=== PATIENT | male | born 1940 | race Caucasian/White ===

== ENCOUNTER 2025-02-11 10:38 | Inpatient (IN) | payer MEDICARE ==
[2025-02-11 11:47] LABS: Basophils # (A) 0.03 10*3/uL (0.00-0.10); Basophils % (A) 0.4 %; Eosinophils # (A) 0.09 10*3/uL (0.04-0.35); Eosinophils % (A) 1.3 %; HCT 36.7 % (39.6-50.0); HGB 12.5 g/dL (13.0-17.0); Lymphocytes % (A) 32.6 %; MCH 28.4 pg (27.0-32.0); MCHC 34.1 g/dL (32.0-37.0); MCV 83.4 fL (80.0-97.0); Mean Platelet Volume 9.8 fL (9.5-12.2); Monocytes # (A) 0.74 10*3/uL (0.20-1.00); Neutrophils # (A) 3.67 10*3/uL (1.80-7.70); Neutrophils % (A) 54.4 %; Platelet Count 253 10*3/uL (140-440); RDW 14.3 % (11.5-14.5); WBC 6.75 10*3/uL (4.50-10.00)
--- NOTE | 2025-02-11 11:58 | ED ---
General Adult HPI - General Chief complaint: Weakness Stated complaint: Abn labs-sent by PCP Time Seen by Provider: 02/11/25 10:40 Source: patient, family, RN notes reviewed, old records reviewed Mode of arrival: wheelchair - History of Present Illness Initial comments: This is an 85-year-old male who presents to the emergency department much more fatigued than baseline and also according to the daughter he is a little confused. Patient went to his doctors yesterday and they found out that he was in kidney failure so they sent him into the emergency department. Patient had some diarrhea last week but only has had a couple episodes this week. Patient has had no fever chills there is been no cough. Patient is not complaining of any chest pain abdominal pain. Patient denies any difficulty breathing or shortness of breath. Patient's main complaint is he just feels tired overall. - Related Data Home Medications Medication Instructions Recorded Confirmed Alfuzosin HCl [Uroxatral ER] 10 mg PO HS 08/04/17 02/11/25 Benazepril HCl [Lotensin] 40 mg PO BID 08/04/17 02/11/25 Metoprolol Tartrate [Lopressor] 50 mg PO BID 08/04/17 02/11/25 Carbidopa-Levodopa ER 50-200Mg 1 tab PO HS 02/11/25 02/11/25 [Sinemet CR 50-200 mg] Carbidopa-Levodopa ER 50-200Mg 2 tab PO DAILY 02/11/25 02/11/25 [Sinemet CR 50-200 mg] Furosemide [Lasix] 20 mg PO DAILY 02/11/25 02/11/25 Furosemide [Lasix] 20 mg PO DAILY PRN 02/11/25 02/11/25 Allergies Allergy/AdvReac Type Severity Reaction Status Date / Time No Known Allergies Allergy Verified 02/11/25 12:07 Review of Systems ROS Statement: Those systems with pertinent positive or pertinent negative responses have been documented in the HPI. ROS Other: All systems not noted in ROS Statement are negative. Past Medical History Past Medical History: Eye Disorder, Hypertension Additional Past Medical History / Comment(s): Right cataract. History of Any Multi-Drug Resistant Organisms: None Reported Additional Past Surgical History / Comment(s): Left cataract surgery, gall stones surgery. Past Anesthesia/Blood Transfusion Reactions: No Reported Reaction Past Psychological History: Anxiety Past Alcohol Use History: Rare Past Drug Use History: None Reported - Past Family History Mother Family Medical History: No Reported History General Exam - General Exam Comments Initial Comments: GENERAL: Patient is well-developed and well-nourished. Patient is nontoxic and well- hydrated and is in no acute distress. ENT: Neck is soft and supple. No significant lymphadenopathy is noted. Oropharynx is clear. Moist mucous membranes. Neck has full range of motion without eliciting any pain. EYES: The sclera were anicteric and conjunctiva were pink and moist. Extraocular movements were intact and pupils were equal round and reactive to light. Eyelids were unremarkable. PULMONARY: Unlabored respirations. Good breath sounds bilaterally. No audible rales rhonchi or wheezing was noted. CARDIOVASCULAR: There is a regular rate and rhythm without any murmurs gallops or rubs. ABDOMEN: Soft and nontender with normal bowel sounds. SKIN: Skin is clear with no lesions or rashes and otherwise unremarkable. NEUROLOGIC: Patient is alert and oriented x3. Cranial nerves II through XII are grossly intact. Motor and sensory are also intact. Normal speech, volume and content. Symmetrical smile. MUSCULOSKELETAL: Normal extremities with adequate strength and full range of motion. No lower extremity swelling or edema. No calf tenderness. LYMPHATICS: No significant lymphadenopathy is noted PSYCHIATRIC: Normal psychiatric evaluation. Course Vital Signs 02/11/25 02/11/25 02/11/25 10:38 11:57 13:23 Temperature 97.9 F Pulse Rate 63 56 L 53 L Respiratory 14 22 18 Rate Blood Pressure 146/93 133/82 129/77 O2 Sat by Pulse 96 96 97 Oximetry Medical Decision Making - Medical Decision Making Was pt. sent in by a medical professional or institution (, PA, [facility], urgent care, hospital, or [facility]...) When possible be specific @ -No Did you speak to anyone other than the patient for history (EMS, parent, family, police, friend...)? What history was obtained from this source @ -No Did you review nursing and triage notes (agree or disagree)? Why? @ -I reviewed and agree with nursing and triage notes Were old charts reviewed (outside hosp., previous admission, EMS record, old EKG, old radiological studies, urgent care reports/EKG's, [facility] records)? Report findings @ -No old charts were reviewed Differential Diagnosis? @ -Differential Weakness: Hypoglycemia, shock, sepsis, hyponatremia, anemia, infection, CT, ETOH, adverse medicine reaction, overdose, stroke, this is not meant to be an all-inclusive list. EKG interpreted by me (3pts min.). @ -As above X-rays interpreted by me (1pt min.). @ -None done CT interpreted by me (1pt min.). @ -None done U/S interpreted by me (1pt. min.). @ -None done What testing was considered but not performed or refused? (CT, X-rays, U/S, labs)? Why? @ -None What meds were considered but not given or refused? Why? @ -None Did you discuss the management of the patient with other professionals (professionals i.e. , PA, [facility], lab, RT, psych nurse, psychiatric social worker supervisor, loom fixer, teacher, agricultural technical officer, trimming caser)? Give summary @ -I spoke with Dr. Grissom he agreed to admit the patient. I consulted nephrology Was smoking cessation discussed for >3mins.? @ -No Was critical care preformed (if so, how long)? @ -No Were there social determinants of health that impacted care today? How? (Homelessness, low income, unemployed, alcoholism, drug addiction, transportation, low edu. Level, literacy, decrease access to med. care, fdc, rehab)? @ -No Was there de-escalation of care discussed even if they declined (Discuss DNR or withdrawal of care, Hospice)? DNR status @ -No What co-morbidities impacted this encounter? (DM, HTN, Smoking, COPD, CAD, Cancer, CVA, ARF, Chemo, Hep., AIDS, mental health diagnosis, sleep apnea, morbid obesity)? @ -None Was patient admitted / discharged? Hospital course, mention meds given and route, prescriptions, significant lab abnormalities, going to OR and other pertinent info. @ -Patient has acute kidney failure secondary to obstructive uropathy. Patient had a catheter placed and 1600 cc of urine was removed. Undiagnosed new problem with uncertain prognosis? @ -No Drug Therapy requiring intensive monitoring for toxicity (Heparin, Nitro, Insulin, Cardizem)? @ -No Were any procedures done? @ -No Diagnosis/symptom? @ -Obstructive uropathy Acute, or Chronic, or Acute on Chronic? @ -Acute Uncomplicated (without systemic symptoms) or Complicated (systemic symptoms)? @ -Complicated Side effects of treatment? @ -No Exacerbation, Progression, or Severe Exacerbation? @ -No Poses a threat to life or bodily function? How? (Chest pain, USA, CT, pneumonia, PE, COPD, DKA, ARF, appy, cholecystitis, CVA, Diverticulitis, Homicidal, Suicidal, threat to staff... and all critical care pts) @ -No Diagnosis/symptom? @ -Acute kidney failure Acute, or Chronic, or Acute on Chronic? @ -Acute Uncomplicated (without systemic symptoms) or Complicated (systemic symptoms)? @ -Complicated Side effects of treatment? @ -None Exacerbation, Progression, or Severe Exacerbation] @ -No Poses a threat to life or bodily function? @ -Yes this can lead to electrolyte abnormalities and arrhythmia and possible - Lab Data Result diagrams: 02/11/25 11:38 02/11/25 11:38 Lab Results 02/11/25 02/11/25 02/11/25 Range/Units 11:38 11:38 11:57 WBC 6.75 (4.50-10.00) 10*3/uL RBC 4.40 (4.40-5.60) 10*6/uL Hgb 12.5 L (13.0-17.0) g/dL Hct 36.7 L (39.6-50.0) % MCV 83.4 (80.0-97.0) fL MCH 28.4 (27.0-32.0) pg MCHC 34.1 (32.0-37.0) g/dL Plt Count 253 (140-440) 10*3/uL MPV 9.8 (9.5-12.2) fL Immature Gran % (Auto) 0.3 % Neutrophils % 54.4 % Lymphocytes % 32.6 % Monocytes % 11.0 % Eosinophils % 1.3 % Basophils % 0.4 % Immature Gran # 0.02 (0.00-0.04) 10*3/uL Neutrophils # 3.67 (1.80-7.70) 10*3/uL Lymphocytes # 2.20 (0.90-5.00) 10*3/uL Monocytes # 0.74 (0.20-1.00) 10*3/uL Eosinophils # 0.09 (0.04-0.35) 10*3/uL Basophils # 0.03 (0.00-0.10) 10*3/uL Sodium 138 (137-145) mmol/L Potassium 5.3 H (3.5-5.1) mmol/L Chloride 107 (98-107) mmol/L Carbon Dioxide 22 (22-30) mmol/L Anion Gap 9 mmol/L BUN 113 H* (9-20) mg/dL Creatinine 6.53 H (0.66-1.25) mg/dL Est GFR (CKD-EPI)AfAm 8 (>60 ml/min/1.73 sqM) Est GFR (CKD-EPI)NonAf 7 (>60 ml/min/1.73 sqM) Glucose 121 H (74-99) mg/dL Calcium 8.1 L (8.4-10.2) mg/dL Magnesium 3.1 H (1.6-2.3) mg/dL Total Bilirubin 0.5 (0.2-1.3) mg/dL AST 26 (17-59) U/L ALT <6 (4-49) U/L Alkaline Phosphatase 95 (38-126) U/L Total Protein 6.2 L (6.3-8.2) g/dL Albumin 3.3 L (3.5-5.0) g/dL Urine Color Colorless Urine Appearance Clear (Clear) Urine pH 5.0 (5.0-8.0) Ur Specific [place] 1.011 (1.001-1.035) Urine Protein Negative (Negative) Urine Glucose (UA) Negative (Negative) Urine Ketones Negative (Negative) Urine Blood Negative (Negative) Urine Nitrite Negative (Negative) Urine Bilirubin Negative (Negative) Urine Urobilinogen <2.0 (<2.0) mg/dL Ur Leukocyte Esterase Negative (Negative) Disposition Clinical Impression: Obstructive uropathy, Acute kidney failure Disposition: ADMITTED IP TO THIS HOSP Referrals: Linsey Marley MD [Primary Care Provider] - 1-2 days Time of Disposition: 14:07
[2025-02-11] MEDS: SODIUM CHLORIDE 0.9% 1,000 ML IV ONE ×2 (12:05→14:26)
[2025-02-11 12:09] LABS: ALT <6 U/L (4-49); AST 26 U/L (17-59); African American GFR (CKD) 8 (>60 ml/min/1.73 sqM); Albumin 3.3 g/dL (3.5-5.0); Alkaline Phosphatase 95 U/L (38-126); Anion Gap 9 mmol/L; Calcium 8.1 mg/dL (8.4-10.2); Carbon Dioxide 22 mmol/L (22-30); Chloride 107 mmol/L (98-107); Glucose 121 mg/dL (74-99); Magnesium 3.1 mg/dL (1.6-2.3); Non-African American GFR(CKD) 7 (>60 ml/min/1.73 sqM); Potassium 5.3 mmol/L (3.5-5.1); Sodium 138 mmol/L (137-145); Total Bilirubin 0.5 mg/dL (0.2-1.3); Total Protein 6.2 g/dL (6.3-8.2)
[2025-02-11 12:19] LABS: Blood Urea Nitrogen 113 mg/dL (9-20)
[2025-02-11 12:31] LABS: Appearance,Urine Clear (Clear); Bilirubin,Urine Negative (Negative); Blood,Urine Negative (Negative); Color,Urine Colorless; Glucose,Urine (UA) Negative (Negative); Ketones,Urine Negative (Negative); Leukocyte Esterase,Urine Negative (Negative); Nitrite,Urine Negative (Negative); Protein,Urine Negative (Negative); Specific Gravity,Urine 1.011 (1.001-1.035); Urobilinogen,Urine <2.0 mg/dL (<2.0)
--- NOTE | 2025-02-11 16:03 | P.HPIM ---
History of Present Illness H&P Date: 02/11/25 Clifford Alex, is an 85-year-old male presented to [facility] emergency room with a chief complaint of generalized weakness and malaise. He was evaluated in the emergency room vital examination on presentation revealed a temperature of 97.9 pulse 63 respiration 14 blood pressure 146/93 pulse ox 96% on room air Laboratory data reveals white blood count of 6.75 hemoglobin 12.5 platelet count 253 sodium 138 potassium 5.3 BUN 113 creatinine 6.53 Testing in the emergency room, no testing result is available at this time kidney and bladder ultrasound was ordered results are still not available Patient was admitted to medical floor for further evaluation and treatment Past medical history is significant for history of hypertension history of Parkinson disease history of benign prostatic hypertrophy Past Medical History Past Medical History: Eye Disorder, Hypertension Additional Past Medical History / Comment(s): Right cataract. History of Any Multi-Drug Resistant Organisms: None Reported Additional Past Surgical History / Comment(s): Left cataract surgery, gall stones surgery. Past Anesthesia/Blood Transfusion Reactions: No Reported Reaction Past Psychological History: Anxiety Past Alcohol Use History: Rare Past Drug Use History: None Reported - Past Family History Mother Family Medical History: No Reported History Medications and Allergies Home Medications Medication Instructions Recorded Confirmed Type Alfuzosin HCl [Uroxatral ER] 10 mg PO HS 08/04/17 02/11/25 History Benazepril HCl [Lotensin] 40 mg PO BID 08/04/17 02/11/25 History Metoprolol Tartrate [Lopressor] 50 mg PO BID 08/04/17 02/11/25 History Carbidopa-Levodopa ER 50-200Mg 1 tab PO HS 02/11/25 02/11/25 History [Sinemet CR 50-200 mg] Carbidopa-Levodopa ER 50-200Mg 2 tab PO DAILY 02/11/25 02/11/25 History [Sinemet CR 50-200 mg] Furosemide [Lasix] 20 mg PO DAILY 02/11/25 02/11/25 History Furosemide [Lasix] 20 mg PO DAILY PRN 02/11/25 02/11/25 History Allergies Allergy/AdvReac Type Severity Reaction Status Date / Time No Known Allergies Allergy Verified 02/11/25 12:07 Physical Exam Vitals: Vital Signs Temp Pulse Resp BP Pulse Ox 02/11/25 14:26 52 L 16 116/68 97 06/10/25 13:23 53 L 18 129/77 97 02/11/25 11:57 56 L 22 133/82 96 02/11/25 10:38 97.9 F 63 14 146/93 96 Intake and Output 02/11/25 02/11/25 02/11/25 06:59 14:59 22:59 Output Total 1600 Balance -1600 Output: Urine 1600 Other: Weight 92.986 kg In general patient is alert and oriented x 3 in no distress HEENT head normocephalic and atraumatic Neck is supple no JVD no goiter no lymphadenopathy no carotid bruit Chest examination is clear to auscultation no crackles no wheezing Cardiac exam reveals regular heart sounds S1 and S2 no gallops no murmurs Abdomen is soft nontender no organomegaly with normal bowel sounds Extremity exam reveals no edema no cyanosis or clubbing Neurological examination reveals no gross focal deficits Results CBC & Chem 7: 02/11/25 11:38 02/11/25 11:38 Labs: Abnormal Lab Results - Last 24 Hours (Table) 02/11/25 02/11/25 Range/Units 11:38 11:38 Hgb 12.5 L (13.0-17.0) g/dL Hct 36.7 L (39.6-50.0) % Potassium 5.3 H (3.5-5.1) mmol/L BUN 113 H* (9-20) mg/dL Creatinine 6.53 H (0.66-1.25) mg/dL Glucose 121 H (74-99) mg/dL Calcium 8.1 L (8.4-10.2) mg/dL Magnesium 3.1 H (1.6-2.3) mg/dL Total Protein 6.2 L (6.3-8.2) g/dL Albumin 3.3 L (3.5-5.0) g/dL Assessment and Plan Plan: Obstructive uropathy patient had Mijares catheter inserted in the emergency room Acute renal failure likely related to obstructive uropathy, the presence of MAURILIO inhibitor Underlying history of hypertension Underlying history of Parkinson disease Underlying history of benign prostatic hypertrophy Underlying history of chronic back pain At this time patient was seen and examined Home medications reviewed and reordered, at this time will hold off MAURILIO inhibitor Nephrology and urology consultation were requested For DVT prophylaxis subcu Lovenox Follow closely
[2025-02-11] MEDS ORDERED: ALPRAZolam 0.25 MG TAB PO PRN (16:04)
--- NOTE | 2025-02-11 17:02 | US ---
EXAMINATION TYPE: US kidneys/renal and bladder DATE OF EXAM: 02/11/2025 COMPARISON: NONE CLINICAL INDICATION: Male, 85 years old with history of Acute renal failure; Acute renal failure TECHNIQUE: Grayscale imaging of the bilateral kidneys and urinary bladder: FINDINGS: EXAM MEASUREMENTS: Right Kidney: 12.7 x 5.9 x 5.4 cm Left Kidney: 12.6 x 5.8 x 7.1 cm Right Kidney: Measures slightly large. [place] seen. *Hypoechoic area seen lower pole: 2.1 x 1.9 x 1 .4 cm. *Anechoic area seen upper pole: 1.4 x 1.1 x 1.3 cm. Left Kidney: Measures slightly large. [place] seen. Bladder: Unable to evaluate. Catheter in place. Bilateral Jets seen: No IMPRESSION: 1. Moderate right hydronephrosis. [facility], , 02/11/2025 5:00 PM
[2025-02-11] MEDS: ACETAMINOPHEN TAB 500 MG TAB PO PRN (19:27)
[2025-02-11] MEDS: TAMSULOSIN 0.4 MG CAP.ER.24H PO SCH (20:32)
[2025-02-11] MEDS: METOPROLOL TARTRATE 50 MG TAB PO SCH (20:32)
[2025-02-11] MEDS: CARBIDOPA-LEVODOPA ER 50-200MG 1 EACH TABLET.ER PO SCH (20:59)
[2025-02-12] MEDS: HYDROcodone/APAP 7.5-325MG 1 EACH TAB PO PRN (05:09)
--- NOTE | 2025-02-12 05:59 | P.GSCN ---
History of Present Illness History of present illness: 85-year-old gentleman who presented to the hospital with weakness. He was found to have renal failure with a BUN of 113 and a creatinine of 6.5. The patient apparently was in urine retention however I cannot clarify as to how much urine was placed when he was catheterized. The famil states approximately 1500 ml. We are asked to the patient by . The patient has not had a urinalysis. He had renal ultrasound that did show bilateral hydronephrosis. the patient was having some problems prior to this retention. He has been on alfuzosin by Dr Marley pre hospitalization. the patient does have history of constipation and was constipated a few days ago. Review of Systems All systems: negative - Constitutional Denies fever, Denies weight loss - EENT Eyes: denies blurred vision Ears, nose, mouth and throat: Denies dysphagia - Cardiovascular Denies chest pain, Denies shortness of breath - Respiratory Denies cough, Denies 7 - Gastrointestinal Reports as per HPI - Genitourinary Denies dysuria, Denies hematuria - Integumentary Denies rash, Denies unusual bruising - Neurological Denies headaches, Denies syncope - Hematologic/Lymphatic Denies easy bleeding, Denies easy bruising Past Medical History Past Medical History: Eye Disorder, Hypertension Additional Past Medical History / Comment(s): Right cataract. History of Any Multi-Drug Resistant Organisms: None Reported Additional Past Surgical History / Comment(s): Left cataract surgery, gall stones surgery. Past Anesthesia/Blood Transfusion Reactions: No Reported Reaction Past Psychological History: Anxiety Past Alcohol Use History: Rare Past Drug Use History: None Reported - Past Family History Mother Family Medical History: No Reported History Medications and Allergies Home Medications Medication Instructions Recorded Confirmed Type Alfuzosin HCl [Uroxatral ER] 10 mg PO HS 08/04/17 02/11/25 History Benazepril HCl [Lotensin] 40 mg PO BID 08/04/17 02/11/25 History Metoprolol Tartrate [Lopressor] 50 mg PO BID 08/04/17 02/11/25 History Carbidopa-Levodopa ER 50-200Mg 1 tab PO HS 02/11/25 02/11/25 History [Sinemet CR 50-200 mg] Carbidopa-Levodopa ER 50-200Mg 2 tab PO DAILY 02/11/25 02/11/25 History [Sinemet CR 50-200 mg] Furosemide [Lasix] 20 mg PO DAILY 02/11/25 02/11/25 History Furosemide [Lasix] 20 mg PO DAILY PRN 02/11/25 02/11/25 History Allergies Allergy/AdvReac Type Severity Reaction Status Date / Time No Known Allergies Allergy Verified 02/11/25 12:07 Surgical - Exam Vital Signs Temp Pulse Resp BP Pulse Ox 97.9 F 63 14 146/93 96 02/11/25 10:38 02/11/25 10:38 02/11/25 10:38 02/11/25 10:38 02/11/25 10:38 - General well developed, well nourished, no distress - Eyes normal ocular movement, no icteric - ENT no hearing loss, no congestion - Neck no masses, trachea midline - Respiratory normal respiratory effort, clear to auscultation - Abdomen Abdomen: soft, non tender, no guarding, no rigid, no rebound - Rectum prostate 20-30 gmas. small amount of stool in the rectum - Integumentary no rash, no abnormal pigmentation - Neurologic no disoriented, no combative - Psychiatric oriented to time, oriented to person, oriented to place, speech is normal, memory intact Results - Labs 02/11/25 11:38 02/11/25 11:38 Abnormal Lab Results - Last 24 Hours (Table) 02/11/25 02/11/25 Range/Units 11:38 11:38 Hgb 12.5 L (13.0-17.0) g/dL Hct 36.7 L (39.6-50.0) % Potassium 5.3 H (3.5-5.1) mmol/L BUN 113 H* (9-20) mg/dL Creatinine 6.53 H (0.66-1.25) mg/dL Glucose 121 H (74-99) mg/dL Calcium 8.1 L (8.4-10.2) mg/dL Magnesium 3.1 H (1.6-2.3) mg/dL Total Protein 6.2 L (6.3-8.2) g/dL Albumin 3.3 L (3.5-5.0) g/dL Diabetes panel 02/11/25 Range/Units 11:38 Sodium 138 (137-145) mmol/L Potassium 5.3 H (3.5-5.1) mmol/L Chloride 107 (98-107) mmol/L Carbon Dioxide 22 (22-30) mmol/L BUN 113 H* (9-20) mg/dL Creatinine 6.53 H (0.66-1.25) mg/dL Glucose 121 H (74-99) mg/dL Calcium 8.1 L (8.4-10.2) mg/dL AST 26 (17-59) U/L ALT <6 (4-49) U/L Alkaline Phosphatase 95 (38-126) U/L Total Protein 6.2 L (6.3-8.2) g/dL Albumin 3.3 L (3.5-5.0) g/dL Calcium panel 02/11/25 Range/Units 11:38 Calcium 8.1 L (8.4-10.2) mg/dL Albumin 3.3 L (3.5-5.0) g/dL Pituitary panel 02/11/25 Range/Units 11:38 Sodium 138 (137-145) mmol/L Potassium 5.3 H (3.5-5.1) mmol/L Chloride 107 (98-107) mmol/L Carbon Dioxide 22 (22-30) mmol/L BUN 113 H* (9-20) mg/dL Creatinine 6.53 H (0.66-1.25) mg/dL Glucose 121 H (74-99) mg/dL Calcium 8.1 L (8.4-10.2) mg/dL Adrenal panel 02/11/25 Range/Units 11:38 Sodium 138 (137-145) mmol/L Potassium 5.3 H (3.5-5.1) mmol/L Chloride 107 (98-107) mmol/L Carbon Dioxide 22 (22-30) mmol/L BUN 113 H* (9-20) mg/dL Creatinine 6.53 H (0.66-1.25) mg/dL Glucose 121 H (74-99) mg/dL Calcium 8.1 L (8.4-10.2) mg/dL Total Bilirubin 0.5 (0.2-1.3) mg/dL AST 26 (17-59) U/L ALT <6 (4-49) U/L Alkaline Phosphatase 95 (38-126) U/L Total Protein 6.2 L (6.3-8.2) g/dL Albumin 3.3 L (3.5-5.0) g/dL - Imaging US - kidney/bladder: image reviewed Assessment and Plan Assessment: Impression/recommendation: Probable urinary retention with secondary renal insufficiency. The urine retention ws probably due to constipation. Patient has been on alfuzosin. We will see what happens to his BUN and creatinine upon gustavo cement of his catheter. Patient will probably need lower tract evaluation which will be done as an outpatient in our office. The catheter can be removed for a voiding trial prior to discharge once he is ambulatory
[2025-02-12] MEDS: ENOXAPARIN 30 MG/0.3 ML SYRINGE SQ SCH (09:04)
[2025-02-12] MEDS: CARBIDOPA-LEVODOPA ER 50-200MG 1 EACH TABLET.ER PO SCH (09:04)
--- NOTE | 2025-02-12 09:44 | P.PN ---
Subjective Progress Note Date: 02/12/25 Patient is in the hospital for acute renal failure. He was in urine retention. We are asked see the patient. The patient did have significant constipation that could have led to the retention. The catheter should remain in place until he is ambulatory and his renal function is normalized. At that point in time the catheter can be removed for voiding trial Objective - Vital Signs Vital signs: Vital Signs Temp 98.6 F 02/12/25 08:28 Pulse 62 02/12/25 08:28 Resp 16 02/12/25 08:28 BP 163/80 02/12/25 08:28 Pulse Ox 96 02/12/25 08:28 FiO2 Intake & Output 02/11/25 02/12/25 02/12/25 18:59 06:59 18:59 Output Total 1600 1850 800 Balance -1600 -1850 -800 Weight 92.986 kg 92.986 kg Output: Urine 1600 1850 800 - Labs CBC & Chem 7: 02/11/25 11:38 02/11/25 11:38 Labs: Abnormal Lab Results - Last 24 Hours (Table) 02/11/25 02/11/25 Range/Units 11:38 11:38 Hgb 12.5 L (13.0-17.0) g/dL Hct 36.7 L (39.6-50.0) % Potassium 5.3 H (3.5-5.1) mmol/L BUN 113 H* (9-20) mg/dL Creatinine 6.53 H (0.66-1.25) mg/dL Glucose 121 H (74-99) mg/dL Calcium 8.1 L (8.4-10.2) mg/dL Magnesium 3.1 H (1.6-2.3) mg/dL Total Protein 6.2 L (6.3-8.2) g/dL Albumin 3.3 L (3.5-5.0) g/dL
[2025-02-12 10:29] LABS: Basophils # (A) 0.03 X 10*3/uL (0.00-0.10); Basophils % (A) 0.6 %; Eosinophils # (A) 0.07 X 10*3/uL (0.04-0.35); Eosinophils % (A) 1.3 %; HCT 38.8 % (39.6-50.0); HGB 12.3 g/dL (13.0-17.0); Lymphocytes # (A) 2.11 X 10*3/uL (0.90-5.00); MCH 27.5 pg (27.0-32.0); MCHC 31.7 g/dL (32.0-37.0); MCV 86.6 FL (80.0-97.0); Mean Platelet Volume 10.1 FL (9.5-12.2); Monocytes # (A) 0.57 X 10*3/uL (0.20-1.00); Monocytes % (A) 10.8 %; NRBC Per 100 WBC 0 X 10*3/uL (0.00-0.01); Neutrophils # (A) 2.49 X 10*3/uL (1.80-7.70); Neutrophils % (A) 47.1 %; Platelet Count 251 X 10*3/uL (140-440); RBC 4.48 X 10*6/uL (4.40-5.60); RDW 14.1 % (11.5-14.5); WBC 5.28 X 10*3/uL (4.50-10.00)
[2025-02-12 10:52] LABS: ALT 10 U/L (10-49); AST 23 U/L (14-35); Albumin 3.2 g/dL (3.8-4.9); Albumin/Globulin Ratio 1.14 Ratio (1.60-3.17); Alkaline Phosphatase 80 U/L (41-126); BUN/Creat Ratio 22.76 Ratio (12.00-20.00); Blood Urea Nitrogen 56.9 mg/dL (9.0-27.0); Calcium 7.9 mg/dL (8.7-10.3); Carbon Dioxide 22.5 mmol/L (21.6-31.8); Chloride 112 mmol/L (96-109); Globulin 2.8 g/dL (1.6-3.3); Glucose 163 mg/dL (70-110); Potassium 4.7 mmol/L (3.5-5.5); Sodium 144 mmol/L (135-145); Total Bilirubin 0.3 mg/dL (0.3-1.2)
--- NOTE | 2025-02-12 13:15 | P.NPCON ---
History of Present Illness - Reason for Consult acute renal failure - History of Present Illness Patient is an 85-year-old male with history of hypertension who was admitted to the hospital with increased weakness. He did have some difficulty in voiding. Ultrasound of the kidneys showed showed bilateral hydronephrosis and a Mijares catheter was placed. It appears that 1500 mL of urine may have been been obtained on initial catheter placement although this charting is not clear. Serum creatinine was 6.5 on admission and has decreased to 2.5 today. No hypotension noted No history of NSAIDs Maintained on MAURILIO inhibitors and loop diuretics at home Past Medical History Past Medical History: Eye Disorder, Hypertension Additional Past Medical History / Comment(s): Right cataract. History of Any Multi-Drug Resistant Organisms: None Reported Additional Past Surgical History / Comment(s): Left cataract surgery, gall stones surgery. Past Anesthesia/Blood Transfusion Reactions: No Reported Reaction Past Psychological History: Anxiety Smoking Status: Former smoker Past Alcohol Use History: Rare Additional Past Alcohol Use History / Comment(s): Smoked cigars quit 6 yrs ago, smoked pipes quit 15 yrs ago. Past Drug Use History: None Reported - Past Family History Mother Family Medical History: No Reported History Medications and Allergies Home Medications Medication Instructions Recorded Confirmed Type Alfuzosin HCl [Uroxatral ER] 10 mg PO HS 08/04/17 02/11/25 History Benazepril HCl [Lotensin] 40 mg PO BID 08/04/17 02/11/25 History Metoprolol Tartrate [Lopressor] 50 mg PO BID 08/04/17 02/11/25 History Carbidopa-Levodopa ER 50-200Mg 1 tab PO HS 02/11/25 02/11/25 History [Sinemet CR 50-200 mg] Carbidopa-Levodopa ER 50-200Mg 2 tab PO DAILY 02/11/25 02/11/25 History [Sinemet CR 50-200 mg] Furosemide [Lasix] 20 mg PO DAILY 02/11/25 02/11/25 History Furosemide [Lasix] 20 mg PO DAILY PRN 02/11/25 02/11/25 History Allergies Allergy/AdvReac Type Severity Reaction Status Date / Time No Known Allergies Allergy Verified 02/11/25 12:07 Physical Exam Vitals: Vital Signs Temp Pulse Pulse Resp BP BP Pulse Ox 02/12/25 08:28 98.6 F 62 16 163/80 96 02/12/25 02:36 59 L 18 166/82 97 02/11/25 23:00 61 18 156/83 96 02/11/25 19:25 64 18 161/80 97 02/11/25 14:26 52 L 16 116/68 97 02/11/25 13:23 53 L 18 129/77 97 Intake and Output 02/11/25 02/12/25 02/12/25 22:59 06:59 14:59 Output Total 1850 800 Balance -1850 -800 Output: Urine 1850 800 Other: Voiding Method Indwelling Catheter Weight 92.986 kg Patient is awake, comfortable, no acute distress Examination of the heart S1 and S2 Examination of the lungs bilateral breath sounds are heard Abdomen is soft nontender Examination of lower extremities shows no significant edema [employer] exam grossly intact Results - Lab Results Most recent lab results Calcium 7.9 mg/dL (8.7-10.3) L 02/12/25 06:15 Magnesium 3.1 mg/dL (1.6-2.3) H 02/11/25 11:38 02/12/25 06:15 02/12/25 06:15 Assessment and Plan Assessment: 1. Acute kidney injury secondary to obstructive uropathy status post Mijares catheter placement with improvement in renal function. Ultrasound showed bilateral hydronephrosis. UA is completely benign 2. Hypertension maintained on MAURILIO inhibitors and metoprolol at home 3. History of Parkinson's disease 4. Mild hyperkalemia associated with acute kidney injury, improved Plan: Continue with Mijares catheter Follow-up as outpatient with urology. Monitor for postobstructive diuresis May resume MAURILIO inhibitors if blood pressure remains elevated Thank you for the consultation. I will continue to follow the patient with you during his hospitalization.
[2025-02-12] MEDS: amLODIPine 10 MG TAB PO SCH (14:00)
[2025-02-12] MEDS: SODIUM CHLORIDE 0.9% 1,000 ML IV SCH (14:01)
--- NOTE | 2025-02-12 14:01 | XR ---
EXAMINATION TYPE: XR chest 1V portable DATE OF EXAM: 02/12/2025 1:30 PM COMPARISON: None CLINICAL INDICATION: Male, 85 years old with history of chf; TECHNIQUE: XR chest 1V portable Frontal view of the chest. FINDINGS: Lungs/Pleura: There is no evidence of pleural effusion, focal consolidation, or pneumothorax. Pulmonary vascularity: Unremarkable. Heart/mediastinum: Cardiomediastinal silhouette is unremarkable. Musculoskeletal: No acute osseous pathology. Other findings: None IMPRESSION: No evidence for congestive heart failure. No acute cardiopulmonary disease/process. [facility], , 02/12/2025 1:59 PM
[2025-02-12] MEDS: polyethylene glycoL 3350 17 GM POWD.PACK PO SCH (17:06)
[2025-02-12] MEDS: THIAMINE 100 MG TAB PO SCH (17:07)
[2025-02-12] MEDS: HEPARIN SODIUM,PORCINE 5,000 UNIT/ML 1 ML VIAL SQ SCH (20:47)
--- NOTE | 2025-02-12 20:59 | PN ---
PROGRESS NOTE DATE OF SERVICE: 02/12/2025 SUBJECTIVE: This is an 85-year-old gentleman was admitted with acute renal failure possibly secondary to dehydration as well as some element of obstructive uropathy or possibly secondary to constipation, is being closely monitored at this time. The patient also has a history of Parkinson's, also creatinine was elevated up to 6.53 yesterday, today is 2.5. Multiple consultants are following the patient closely. PAST MEDICAL HISTORY: Reviewed. REVIEW OF SYSTEMS: A 14-point review of systems negative except as mentioned earlier. CURRENT MEDICATIONS: Reviewed. PHYSICAL EXAMINATION: VITAL SIGNS: Pulse is 59, blood pressure 106/80, respirations 18. CHEST: Clear to auscultation. CARDIOVASCULAR: S1, S2. ABDOMEN: Soft. Obese. LEGS: No edema, no cyanosis. NERVOUS SYSTEM: Diffusely weak, tremors, Parkinson's. LABORATORY DATA: Creatinine 2.5. Other labs reviewed. ASSESSMENT: 1. [id number] renal failure possibly prerenal acute tubular necrosis, multifactorial, possibly secondary to dehydration as well as obstructive uropathy/constipation. 2. Anemia. 3. Hypertension. 4. History of Parkinson's. 5. History of anxiety. RECOMMENDATION AND DISCUSSION: This 85-year-old gentleman presented with multiple complex medical issues. We will monitor the patient closely. Avoid nephrotoxic medications. Otherwise, I recommend continue with IV fluids cautiously. Closely follow with Nephrology. Further recommendations to follow. MMODL / IJN: [id number] /
[2025-02-13] MEDS: PANTOPRAZOLE 40 MG TABLET PO SCH (06:31)
[2025-02-13 08:17] LABS: ALT 8 U/L (10-49); AST 24 U/L (14-35); Alkaline Phosphatase 76 U/L (41-126); BUN/Creat Ratio 18.86 Ratio (12.00-20.00); Blood Urea Nitrogen 26.4 mg/dL (9.0-27.0); Carbon Dioxide 21.1 mmol/L (21.6-31.8); Chloride 113 mmol/L (96-109); Glucose 114 mg/dL (70-110); Potassium 5.3 mmol/L (3.5-5.5); Sodium 143 mmol/L (135-145); Total Bilirubin 0.3 mg/dL (0.3-1.2)
[2025-02-13 08:18] LABS: Basophils # (A) 0.04 X 10*3/uL (0.00-0.10); Basophils % (A) 0.9 %; Eosinophils # (A) 0.09 X 10*3/uL (0.04-0.35); Eosinophils % (A) 1.9 %; HCT 39.6 % (39.6-50.0); HGB 12.5 g/dL (13.0-17.0); Lymphocytes # (A) 2.22 X 10*3/uL (0.90-5.00); Lymphocytes % (A) 47.8 %; MCHC 31.6 g/dL (32.0-37.0); MCV 88.6 FL (80.0-97.0); Mean Platelet Volume 9.9 FL (9.5-12.2); Monocytes # (A) 0.43 X 10*3/uL (0.20-1.00); Monocytes % (A) 9.3 %; NRBC Per 100 WBC 0 X 10*3/uL (0.00-0.01); Neutrophils # (A) 1.84 X 10*3/uL (1.80-7.70); Neutrophils % (A) 39.7 %; Platelet Count 238 X 10*3/uL (140-440); RBC 4.47 X 10*6/uL (4.40-5.60); RDW 14.2 % (11.5-14.5); WBC 4.64 X 10*3/uL (4.50-10.00)
--- NOTE | 2025-02-13 11:53 | P.PN ---
Subjective Patient is seen for follow-up for acute kidney injury, mostly obstructive uropathy. Renal function has improved with serum creatinine down to 1.4 mg/dL. 24-hour urine output at 3.4 L No significant complaints today Possible discharge today. Objective - Vital Signs Vital signs: Vital Signs Temp 97.5 F L 02/13/25 07:30 Pulse 64 02/13/25 07:30 Resp 15 02/13/25 07:30 BP 162/79 02/13/25 07:30 Pulse Ox 97 02/13/25 07:30 FiO2 Intake & Output 02/12/25 02/13/25 02/13/25 18:59 06:59 18:59 Intake Total 720 Output Total 800 1100 Balance -80 -1100 Weight 92.986 kg Intake: Intake, IV Titration 720 Amount Sodium Chloride 0.9% 1, 720 000 ml @ 60 mls/hr IV . [id number] [facility] Rx#:[id number] Output: Urine 800 1100 Other: Voiding Method Indwelling Catheter Indwelling Catheter Indwelling Catheter - Exam Patient is awake, comfortable, no acute distress Examination of the heart S1 and S2 Examination of the lungs bilateral breath sounds are heard Abdomen is soft nontender Examination of lower extremities shows no significant edema PELLETIZER exam grossly intact - Labs CBC & Chem 7: 02/13/25 03:31 02/13/25 03:31 Labs: Abnormal Lab Results - Last 24 Hours (Table) 02/13/25 02/13/25 Range/Units 03:31 03:31 Hgb 12.5 L (13.0-17.0) g/dL MCHC 31.6 L (32.0-37.0) g/dL Chloride 113 H (96-109) mmol/L Carbon Dioxide 21.1 L (21.6-31.8) mmol/L Est GFR (CKD-EPI) 49 L (>=60) Glucose 114 H (70-110) mg/dL Calcium 8.0 L (8.7-10.3) mg/dL ALT 8 L (10-49) U/L Total Protein 6.0 L (6.2-8.2) g/dL Albumin 3.0 L (3.8-4.9) g/dL Albumin/Globulin Ratio 1.00 L (1.60-3.17) Ratio Assessment and Plan Assessment: 1. Acute kidney injury secondary to obstructive uropathy status post Mijares catheter placement with improvement in renal function. Ultrasound showed bilateral hydronephrosis. UA is completely benign 2. Hypertension maintained on MAURILIO inhibitors and metoprolol at home 3. History of Parkinson's disease 4. Mild hyperkalemia associated with acute kidney injury, improved Plan: Stable for discharge from nephrology standpoint Attempting voiding trial today. Reinsert Mijares catheter if patient continues with urine retention. He will follow-up as outpatient with urology
[2025-02-13] MEDS: FOLIC ACID 1 MG TAB PO SCH (17:19)
[2025-02-13] MEDS: MULTIVITAMINS, THERA 1 EACH TAB PO SCH (17:19)
[2025-02-13 21:27] VITALS: BP 154/78; PULSE 66; RESP 18; TEMP 98.4
--- NOTE | 2025-02-15 16:42 | P.DS ---
Providers Date of admission: 02/11/25 14:09 Expected date of discharge: 02/13/25 Attending physician: Janae Diaz Consults: 02/11/25 14:07 Consult Physician Urgent Consulting Provider: Saloni Mcrae Consult Reason/Comments: Acute renal failure, obstructive uropathy Do you want consulting provider notified?: Yes 02/11/25 15:33 Consult Physician Routine Consulting Provider: Raudel Padgett Consult Reason/Comments: Obstructive uropathy Do you want consulting provider notified?: Yes Primary care physician: Linsey Marley Hospital Course: Final diagnosis Acute on chronic renal failure, acute tubular necrosis, multifactorial secondary to dehydration with significant diarrhea as well as concerns of obstructive uropathy Urinary retention requiring indwelling Mijares catheter possibly secondary to constipation History of constipation with chronic bowel issues History of anemia Hypertension History of Parkinson's History of anxiety GI prophylaxis DVT prophylaxis Full code Discharge disposition Patient is being discharged in a stable condition with guarded prognosis to home . Patient will follow-up with Dr. Marley in the outpatient setting upon discharge. Patient is to continue with current medications and outpatient follow-up with nephrology as well as urology as scheduled. Total time taken is greater than 35 minutes. Hospital course This is a 85-year-old male who was recently admitted with significant JULIA and severe dehydration with concerns of obstructive uropathy being closely monitored. Patient does follow with Dr. Marley in the outpatient setting with no significant past medical history other than Parkinson's with a mild tremor although is pretty independent and lives with family at home. Patient had been having some diarrhea which resulted in electrolyte abnormalities and significant JULIA with acute tubular necrosis. Patient was given a Mijares maintained on gentle hydration showing significant improvements in creatinine and kidney functions. Patient's mentation is much improved and is at baseline and would like to go home today. Family at the bedside are agreeable and will be following up with nephrology and urology outpatient. Patient started on Flomax and will be returning home on Mijares catheter and recommend trial of voiding outpatient with close outpatient follow-up.mCurrently no reports of chest pain, shortness of breath, or palpitations. Patient is afebrile. No reports of nausea or vomiting and patient is tolerating diet. Patient will be discharged home today. Guarded prognosis. Encouraged patient and family to follow-up with primary care provider on discharge. Physical exam: Gen: This is a 85-year-old male who is awake, alert and oriented x 2-3, well- developed, elderly appearing HEENT: Head is atraumatic, normocephalic. Pupils equal, round. Sclerae is anicteric. NECK: Supple. No JVD. No lymphadenopathy. No thyromegaly. LUNGS: Diminished breath sounds bilaterally otherwise clear to auscultation. No wheezes or rhonchi. No intercostal retractions. HEART: S1, S2 are muffled ABDOMEN: Soft. Obese bowel sounds are present. No masses. No tenderness. EXTREMITIES: No pedal edema. No calf tenderness. Mild lower extremity edema noted of the feet NEUROLOGICAL: Patient is awake, alert and oriented x2-3. Cranial nerves 2 through 12 are grossly intact. Diffusely weak Please refer to medication reconciliation sheet for a list of medications. The impression and plan of care has been dictated by Siobhan Rubin, Nurse Practitioner as directed. Dr. Joe MD I have performed a history and examination and MDM of this patient, discussed the same with the dictator, and agree with the dictator's assessment and plan as written ,documented as a scribe. Based on total visit time, I have performed more than 50% of the visit. Patient Condition at Discharge: Fair Plan - Discharge Summary Discharge Rx Participant: Yes New Discharge Prescriptions: New polyethylene glycoL 3350 [Miralax] 17 gm PO DAILY 30 Days #30 packet Multivitamins, Thera [Multivitamin (formulary)] 1 each PO DAILY@1200 #30 tab amLODIPine [Norvasc] 10 mg PO DAILY #30 tab Sennosides [Senokot] 8.6 mg PO DAILY 30 Days #30 tablet Thiamine [Vitamin B-1] 100 mg PO BID-W/MEALS #30 tab Folic Acid 1 mg PO DAILY@1200 #30 tab Acetaminophen Tab [Tylenol] 500 mg PO Q4HR PRN tab PRN Reason: Fever And/ Or Pain Continue Alfuzosin HCl [Uroxatral ER] 10 mg PO HS Metoprolol Tartrate [Lopressor] 50 mg PO BID Furosemide [Lasix] 20 mg PO DAILY PRN PRN Reason: weight gain Carbidopa-Levodopa ER 50-200Mg [Sinemet CR 50-200 mg] 1 tab PO HS Carbidopa-Levodopa ER 50-200Mg [Sinemet CR 50-200 mg] 2 tab PO DAILY Discontinued Benazepril HCl [Lotensin] 40 mg PO BID Furosemide [Lasix] 20 mg PO DAILY Discharge Medication List Alfuzosin HCl [Uroxatral ER] 10 mg PO HS 08/04/17 [History] Metoprolol Tartrate [Lopressor] 50 mg PO BID 08/04/17 [History] Carbidopa-Levodopa ER 50-200Mg [Sinemet CR 50-200 mg] 1 tab PO HS 02/11/25 [History] Carbidopa-Levodopa ER 50-200Mg [Sinemet CR 50-200 mg] 2 tab PO DAILY 02/11/25 [History] Furosemide [Lasix] 20 mg PO DAILY PRN 02/11/25 [History] Acetaminophen Tab [Tylenol] 500 mg PO Q4HR PRN tab 02/13/25 [Rx] Folic Acid 1 mg PO DAILY@1200 #30 tab 02/13/25 [Rx] Multivitamins, Thera [Multivitamin (formulary)] 1 each PO DAILY@1200 #30 tab 02/13/25 [Rx] Sennosides [Senokot] 8.6 mg PO DAILY 30 Days #30 tablet 02/13/25 [Rx] Thiamine [Vitamin B-1] 100 mg PO BID-W/MEALS #30 tab 02/13/25 [Rx] amLODIPine [Norvasc] 10 mg PO DAILY #30 tab 02/13/25 [Rx] polyethylene glycoL 3350 [Miralax] 17 gm PO DAILY 30 Days #30 packet 02/13/25 [Rx] Follow up Appointment(s)/Referral(s): Saloni Mcrae MD [STAFF PHYSICIAN] - 1 Week (office not answering Please call to schedule appointment ) Linsey Marley MD [Primary Care Provider] - 02/27/25 11:00 am Jey Rueda MD [STAFF PHYSICIAN] - 1 Week (office will call with appointment time) Ambulatory/Diagnostic Orders: Basic Metabolic Panel [LAB.AMB] Time Frame: 3 Days, Location: None Selected Activity/Diet/Wound Care/Special Instructions: Activity limited until follow-up Follow-up with primary care provider on discharge Follow-up with nephrology outpatient Follow-up with urology outpatient Continue on scheduled bowel regimen as well as as needed If having loose stools, recommend holding stool softeners until improved bowels Discharge Disposition: HOME SELF-CARE
--- NOTE | 2025-02-17 09:02 | CDI ---
Documentation Clarification Form Date: 02/17/25 From: Kathryn Mittal Admit Date: 02/11/2025 02:09:00 PM Patient Name: Clifford Dempsey Visit Number: [id number] Discharge Date: 02/13/2025 09:30:00 PM ATTENTION: The Clinical Documentation Specialists (CDI) and [facility] Coding Staff appreciate your assistance in clarifying documentation. Please respond to the clarification below the line at the bottom and electronically sign. The CDI & [facility] Coding staff will review the response and follow-up if needed. Please note: Queries are made part of the Legal Health Record. If you have any questions, please contact the author of this message via ITS. Doctor/Provider: Janae Diaz, Unspecified CKD is documented in your 02/12 progress note and discharge summary. Additional clarification regarding the stage of CKD is requested. History/Risk Factors: HTN, ATN, obstructive uropathy, urine retention, hyperkalemia, dehydration Patients Historical BUN/CR/GFR- none available Clinical Indicators: He was found to be kidney failure and subsequently admitted. Current BUN/CR/GFR: 02/11, 02/12 & 02/13 BUN: 113, 56.9, 26.4 CR: 6.53, 2.5, 1.4 GFR: 7, 25, 49 Treatment: Mijares inserted, gentle hydration Urology Consult: Probable urinary retentionwith secondaryrenal insufficiency. Theurine retentionwas probably due toconstipation. Please clarify the stage of the CKD, if known: [ ] CKD Stage 1 [ ] CKD Stage 2 [ ] CKD Stage 3 [ ] CKD Stage 3a [ ] CKD Stage 3b [ ] CKD Stage 4 [ ] CKD Stage 5 [ ] ESRD [ ] Other, please specify [ ] Unable to determine Reference: [employer] Stage 1 eGFR = 90 and kidney damage for =3 months Stage 2 eGFR 60-89 and kidney damage for =3 months Stage 3a eGFR 45-59 and kidney damage for =3 months Stage 3b eGFR 30-44 and kidney damage for =3 months Stage 4 eGFR 15-29 r and kidney damage for =3 months Stage 5 eGFR <15 and kidney damage for =3 months noneGanesh LOPEZ
== END 2025-02-13 21:30 | disposition home or self-care (01) | DRG 683 ==
LOC: EC 10:38 → 4SSUR 14:09
PROVIDERS: ADMIT Hospitalist; ATTEND Hospitalist
DX: N17.0 Acute kidney failure with tubular necrosis (principal); N13.8 Other obstructive and reflux uropathy; G20.A1 Parkinson's disease without dyskinesia, without mention of fluctuations; I10 Essential (primary) hypertension; D64.9 Anemia, unspecified; E86.0 Dehydration; N13.30 Unspecified hydronephrosis; N40.1 Benign prostatic hyperplasia with lower urinary tract symptoms; R33.8 Other retention of urine; E87.5 Hyperkalemia; F41.9 Anxiety disorder, unspecified; K59.00 Constipation, unspecified; H26.9 Unspecified cataract; R19.7 Diarrhea, unspecified; Z79.899 Other long term (current) drug therapy; Z87.891 Personal history of nicotine dependence; G89.29 Other chronic pain; M54.9 Dorsalgia, unspecified
CPT/HCPCS: 36415; 71045; 76770; 80053; 81003; 83735; 85025; 99285

== ENCOUNTER 2025-02-18 16:48 | Emergency (ER) | payer MEDICARE ==
--- NOTE | 2025-02-18 17:24 | ED ---
Male Urogenital HPI - General Chief complaint: Urogenital Stated complaint: cath issue Time Seen by Provider: 02/18/25 17:03 Source: patient, RN notes reviewed Mode of arrival: ambulatory Limitations: no limitations - History of Present Illness Initial comments: Quick note: This is an 85-year-old male with history including urinary retention and hypertension presenting for anuria since 0830 this morning. Patient states he had his Mijares catheter removed by Dr. Rueda this morning, stating he has been unable to urinate since that time, only producing dribbles according to patient. Patient states he would like to have a Mijares catheter reinserted and will follow-up with Dr. Rueda for a follow-up appointment already scheduled for next week. Patient denies fever, chills, mid back pain, dysuria, hematuria. Time: 08:30 - Related Data Home Medications Medication Instructions Recorded Confirmed Alfuzosin HCl [Uroxatral ER] 10 mg PO HS 08/04/17 02/11/25 Metoprolol Tartrate [Lopressor] 50 mg PO BID 08/04/17 02/11/25 Carbidopa-Levodopa ER 50-200Mg 1 tab PO HS 02/11/25 02/11/25 [Sinemet CR 50-200 mg] Carbidopa-Levodopa ER 50-200Mg 2 tab PO DAILY 02/11/25 02/11/25 [Sinemet CR 50-200 mg] Furosemide [Lasix] 20 mg PO DAILY PRN 02/11/25 02/11/25 Previous Rx's Medication Instructions Recorded Acetaminophen Tab [Tylenol] 500 mg PO Q4HR PRN tab 02/13/25 Folic Acid 1 mg PO DAILY@1200 #30 tab 02/13/25 Multivitamins, Thera [Multivitamin 1 each PO DAILY@1200 #30 tab 02/13/25 (formulary)] Sennosides [Senokot] 8.6 mg PO DAILY 30 Days #30 tablet 02/13/25 Thiamine [Vitamin B-1] 100 mg PO BID-W/MEALS #30 tab 02/13/25 amLODIPine [Norvasc] 10 mg PO DAILY #30 tab 02/13/25 polyethylene glycoL 3350 [Miralax] 17 gm PO DAILY 30 Days #30 packet 02/13/25 Allergies Allergy/AdvReac Type Severity Reaction Status Date / Time No Known Allergies Allergy Verified 06/10/25 12:07 Review of Systems ROS Statement: Those systems with pertinent positive or pertinent negative responses have been documented in the HPI. ROS Other: All systems not noted in ROS Statement are negative. Past Medical History Past Medical History: Eye Disorder, Hypertension Additional Past Medical History / Comment(s): Right cataract. History of Any Multi-Drug Resistant Organisms: None Reported Additional Past Surgical History / Comment(s): Left cataract surgery, gall stones surgery. Past Anesthesia/Blood Transfusion Reactions: No Reported Reaction Past Psychological History: Anxiety Smoking Status: Former smoker Past Alcohol Use History: Rare Past Drug Use History: None Reported - Past Family History Mother Family Medical History: No Reported History General Exam Limitations: no limitations General appearance: alert, in no apparent distress Head exam: Present: atraumatic, normocephalic, normal inspection Eye exam: Present: normal appearance, PERRL, EOMI. Absent: scleral icterus, conjunctival injection, periorbital swelling ENT exam: Present: normal exam, mucous membranes moist Neck exam: Present: normal inspection. Absent: tenderness, meningismus, lymphadenopathy Respiratory exam: Present: normal lung sounds bilaterally. Absent: respiratory distress, wheezes, rales, rhonchi, stridor Cardiovascular Exam: Present: regular rate, normal rhythm, normal heart sounds. Absent: systolic murmur, diastolic murmur, rubs, gallop, clicks GI/Abdominal exam: Present: soft, normal bowel sounds. Absent: distended, tenderness, guarding, rebound, rigid exam: Present: normal inspection. Absent: urethral discharge Extremities exam: Present: normal inspection, full ROM, normal capillary refill. Absent: tenderness, pedal edema, joint swelling, calf tenderness Back exam: Present: normal inspection Neurological exam: Present: alert, oriented X3, CN II-XII intact Psychiatric exam: Present: normal affect, normal mood Skin exam: Present: warm, dry, intact, normal color. Absent: rash Course Vital Signs 02/18/25 02/18/25 16:55 19:05 Temperature 97.9 F 98 F Pulse Rate 102 H 92 Respiratory 20 18 Rate Blood Pressure 116/73 114/76 O2 Sat by Pulse 97 97 Oximetry Procedures - Catheter Insertion (Urinary) Indications: to alleviate urinary retention Prophylactic Antibiotics Given: No Bladder Scan/US before Catheterization: Yes Estimated Amount of Urine (mls): 660 Type of Catheter Inserted: Mijares Results: successfully catheterized-immediate flow Patient Tolerated Procedure: well Complications: none Medical Decision Making - Medical Decision Making Was pt. sent in by a medical professional or institution ([facility], SENIOR SPECIALIST, urgent care, hospital, or custodial...) When possible be specific @ -No Did you speak to anyone other than the patient for history (EMS, parent, family, police, friend...)? What history was obtained from this source @ -No Did you review nursing and triage notes (agree or disagree)? Why? @ -I reviewed and agree with nursing and triage notes Were old charts reviewed (outside hosp., previous admission, EMS record, old EKG, old radiological studies, urgent care reports/EKG's, custodial records)? Report findings @ -No old charts were reviewed Differential Diagnosis (chest pain, altered mental status, abdominal pain women, abdominal pain men, vaginal bleeding, weakness, fever, dyspnea, syncope, headache, dizziness, GI bleed, back pain, seizure, CVA, palpatations, mental health, musculoskeletal)? @ -Differential Abdominal Pain Men: Appendicitis, cholecystitis, diverticulosis, ischemic bowel, pancreatitis, hepatitis, UTI, gastroenteritis, AAA, incarcerated hernia, bowel obstruction, constipation, inflammatory bowel, hepatitis, peptic ulcer disease, splenic infarction, perforated viscus, testicular torsion, this is not meant to be an all-inclusive list EKG interpreted by me (3pts min.). @ -Not done X-rays interpreted by me (1pt min.). @ -None done CT interpreted by me (1pt min.). @ -None done U/S interpreted by me (1pt. min.). @ -None done What testing was considered but not performed or refused? (CT, X-rays, U/S, labs)? Why? @ -None What meds were considered but not given or refused? Why? @ -None Did you discuss the management of the patient with other professionals (professionals i.e. [facility] Couch, SENIOR SPECIALIST, lab, RT, psych nurse, social contact worker, telephone appointment clerk, teacher, geographic area intelligence officer, case maker)? Give summary @ -No Was smoking cessation discussed for >3mins.? @ -No Was critical care preformed (if so, how long)? @ -No Were there social determinants of health that impacted care today? How? (Homelessness, low income, unemployed, alcoholism, drug addiction, transportation, low edu. Level, literacy, decrease access to med. care, penitentiary, rehab)? @ -No Was there de-escalation of care discussed even if they declined (Discuss DNR or withdrawal of care, Hospice)? DNR status @ -No What co-morbidities impacted this encounter? (DM, HTN, Smoking, COPD, CAD, Cancer, CVA, ARF, Chemo, Hep., AIDS, mental health diagnosis, sleep apnea, morbid obesity)? @ -None Was patient admitted / discharged? Hospital course, mention meds given and route, prescriptions, significant lab abnormalities, going to OR and other pertinent info. @ -Bladder scan performed, showing over 600 mL of urine in bladder. Mijares catheter successfully inserted by nurse. UA is completely unremarkable. Advised follow-up with urology for ongoing management of urinary retention and Mijares catheter. Discussed patient with Dr. Munoz. Undiagnosed new problem with uncertain prognosis? @ -No Drug Therapy requiring intensive monitoring for toxicity (Heparin, Nitro, Insulin, Cardizem)? @ -No Were any procedures done? @ -Mijares catheter placed by RN without complication. See procedure note Diagnosis/symptom? @ -Urinary retention, Mijares catheter placement Acute, or Chronic, or Acute on Chronic? @ -Acute Uncomplicated (without systemic symptoms) or Complicated (systemic symptoms)? @ -Uncomplicated Side effects of treatment? @ -No Exacerbation, Progression, or Severe Exacerbation? @ -No Poses a threat to life or bodily function? How? (Chest pain, [place], [place], pneumonia, PE, COPD, DKA, ARF, appy, cholecystitis, CVA, Diverticulitis, Homicidal, Suicidal, threat to staff... and all critical care pts) @ -No - Lab Data Lab Results 02/18/25 Range/Units 18:10 Urine Color Colorless Urine Appearance Clear (Clear) Urine pH 5.0 (5.0-8.0) Ur Specific [place] 1.005 (1.001-1.035) Urine Protein Negative (Negative) Urine Glucose (UA) Negative (Negative) Urine Ketones Negative (Negative) Urine Blood Negative (Negative) Urine Nitrite Negative (Negative) Urine Bilirubin Negative (Negative) Urine Urobilinogen <2.0 (<2.0) mg/dL Ur Leukocyte Esterase Negative (Negative) Disposition Clinical Impression: Urinary retention Disposition: HOME SELF-CARE Condition: Fair Instructions (If sedation given, give patient instructions): Urinary Retention in Men (ED) Additional Instructions: Follow-up with Dr. Rueda for ongoing management of urinary retention Is patient prescribed a controlled substance at d/c from ED?: No Referrals: Linsey Marley MD [Primary Care Provider] - 1-2 days Jey Rueda MD [STAFF PHYSICIAN] - 1-2 days Time of Disposition: 18:29
[2025-02-18 18:24] LABS: Appearance,Urine Clear (Clear); Bilirubin,Urine Negative (Negative); Blood,Urine Negative (Negative); Color,Urine Colorless; Glucose,Urine (UA) Negative (Negative); Ketones,Urine Negative (Negative); Leukocyte Esterase,Urine Negative (Negative); Nitrite,Urine Negative (Negative); Protein,Urine Negative (Negative); Specific Gravity,Urine 1.005 (1.001-1.035); Urobilinogen,Urine <2.0 mg/dL (<2.0)
[2025-02-18 19:07] VITALS: BP 114/76; PULSE 92; RESP 18; TEMP 98
== END 2025-02-18 19:11 | disposition home or self-care (01) ==
LOC: EC 16:48
DX: R33.9 Retention of urine, unspecified (principal); Z87.891 Personal history of nicotine dependence
CPT/HCPCS: 51702; 81003; 99284